=== PATIENT | male | born 1940 | race Caucasian/White ===

== ENCOUNTER 2017-10-11 11:53 | Inpatient (IN) ==
--- NOTE | 2017-10-11 12:07 | Emergency Department Note ---
Disposition Clinical Impression: Left-sided weakness TIA (transient ischemic attack) Qualifiers: Transient cerebral ischemia type: unspecified Qualified Code(s): G45.9 - Transient cerebral ischemic attack, unspecified Disposition: Admitted As Inpatient Condition: Good Time of Disposition: 13:15 Weakness HPI - General Chief complaint: ED Weakness Stated complaint: L sided weakness Time Seen by Provider: 10/11/17 11:59 Source: patient, EMS Limitations: no limitations Nursing Notes Reviewed: Yes Vital Signs Reviewed: Yes - History of Present Illness HPI Narrative: 77-year-old male otherwise healthy presents with left-sided weakness. 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 He also noticed his leg was significantly week and had to lift it to move it up. Squad was called as he was concerned. EMS reports on arrival patient symptoms have resolved and he was seen standing up and walking. Patient denies any history of stroke in the past. He denies any recent illness , headache, cough chest pain or shortness of breath. He has not fallen or taken any anticoagulants. [facility] and is not have any medical issues. Currently he reports resolution of his symptoms. NIH score of 0. Blood glucose 96. Will evaluate for TIA. Pt Subjective Complaint: focal weakness Pain Scale: 0 - Related Data Allergies Allergy/AdvReac Type Severity Reaction Status Date / Time Penicillins [PCN] Allergy Hives Verified 10/11/17 11:55 All systems ED: reviewed and negative except as stated. Review of Systems: As Per HPI Constitutional: Denies: fever, chills ENT ED: Denies: congestion, dysphagia Cardiovascular: Denies: chest pain, dyspnea on exertion Respiratory: Denies: cough, dyspnea Gastrointestinal: Denies: abdominal pain, nausea, vomiting Genitourinary: Denies: urgency, dysuria Musculoskeletal: Denies: back pain, neck pain Integumentary: Denies: rash, abrasion Neurological: Reports: weakness, numbness. Denies: headache, abnormal gait Psychiatric: Denies: anxiety, depression Past Medical History - Past Medical History Attestation: Yes The following information was validated with the patient. Source: patient Medical history: Reports: no medical history, GERD Psychiatric history: Reports: no psych history - Social History Smoking Status: Never smoker Smokeless Tobacco Status: No Alcohol use: Reports: none Drug use: Reports: none Physical Exam - General Limitations: no limitations General appearance: alert, in no apparent distress - Head Head exam: atraumatic, normocephalic, normal inspection - Eye Eye exam: Present: normal appearance, PERRL, EOMI - ENT ENT exam: normal exam, normal oropharynx, mucous membranes moist - Neck Neck exam: Present: normal inspection, full ROM, trachea midline - Chest Chest inspection: Present: normal inspection, symmetric chest wall rise - Respiratory Respiratory exam: Present: normal lung sounds bilaterally. Absent: respiratory distress, wheezes - Cardiovascular Cardiovascular exam: Present: regular rate, normal rhythm, normal heart sounds. Absent: systolic murmur, diastolic murmur - Abdominal Exam Abdominal exam: Present: soft, Non-Tender, normal bowel sounds. Absent: tenderness, distention, guarding, rebound, rigidity - Extremities Exam Extremities exam: Present: normal inspection, full ROM, normal capillary refill. Absent: tenderness, pedal edema, calf tenderness - Back Exam Back exam: Present: normal inspection, full ROM. Absent: tenderness, vertebral tenderness - Neurological Exam Neurological exam: Present: alert, oriented X3, CN II-XII intact - Expanded Neurological Exam Patient oriented to: Present: person, place, time Speech: Present: fluid speech Cranial nerves: EOM function (II, III, IV, ): Normal, facial sensation (V): Normal, facial palsy (VII): Normal, gag reflex (IX): Normal, spinal accessory function (XI): Normal, tongue deviation (XII): Normal Cerebellar function: finger to nose: Normal, heel to willson: Normal Motor strength - LUE: 5/5 Motor strength - RUE: 5/5 Motor strength - LLE: 5/5 Motor strength - RLE: 5/5 Upper motor neuron exam: rylan neglect: Absent bilaterally Sensory exam upper extremity: light touch: Normal Sensory exam lower extremity: light touch: Normal Coma Scale Eye Opening: Spontaneous Coma Scale Motor Response: Obeys Commands Coma Scale Verbal Response: Oriented Coma Scale Total: 15 - Psychiatric Psychiatric exam: Present: normal affect, normal mood - Skin Skin exam: Present: warm, dry, intact, normal color Course Course Narrative: 77-year-old male presents with left sided weakness. No prior history of CVA. Symptoms have resolved spontaneously. NIH 0. On exam no neurologic focal deficits. He has alert and oriented to person place and time. He denies any other complaints or symptoms. Glucose was 96. EKG is unremarkable. He will likely need admission for TIA workup. Will forgo the CT had at this time and get a MRI of the brain and admit the patient. Discuss with the hospital is for admission and they are also in agreement with this plan. No further orders at this time. - Consultations Consultation #1: Spoke with on-call hospitalist amos Cannon to admit for TIA and left weakness. No further orders at this time Vital Signs Temperature 98.2 F 10/11/17 11:56 Pulse Rate 95 10/11/17 11:56 Respiratory Rate 20 10/11/17 11:56 Blood Pressure 189/102 10/11/17 11:56 O2 Sat by Pulse Oximetry 95 10/11/17 11:56 Temperature 98.2 F 10/11/17 11:56 Pulse Rate 86 10/11/17 13:15 Respiratory Rate 18 10/11/17 13:15 Blood Pressure 154/104 10/11/17 13:15 O2 Sat by Pulse Oximetry 99 10/11/17 13:15 Oxygen Delivery Oxygen Delivery Room Air Weakness - MDM Narrative Medical decision making narrative: Patient was discussed with my attending physician who agrees with ED management and final disposition. They independently evaluated the patient. Please refer to their attestation to this encounter for additional information. This note was generated by [employer] voice recognition software and as a result grammatical or spelling errors may occur using this program. - Medical Records Medical records reviewed: Yes I reviewed the patient's medical records. - Lab Data Lab results reviewed: Yes I reviewed the patient's lab results. Result diagrams: 10/11/17 12:22 10/11/17 12:22 Lab Results 10/11/17 10/11/17 10/11/17 Range/Units 11:58 12:22 12:22 WBC 7.1 (4.3-11.1) K/mcL RBC 4.31 (4.19-5.50) M/mcL Hgb 13.3 (12.9-16.9) g/dL Hct 39.9 (37.5-50.1) % MCV 92.6 (83.0-100.0) fL MCH 30.9 (28.0-33.3) pg MCHC 33.3 (31.6-35.5) g/dL RDW 12.3 (11.5-14.5) % Plt Count 230 (140-400) K/mcL MPV 9.7 (9.4-12.4) fL Immature Gran % 0.7 (0-4) % Seg Neutrophils % 67.0 % Lymphocytes % 17.0 % Monocytes % 12.2 % Eosinophils % 2.4 % Basophils % 0.7 % Neutrophils # 4.7 (1.6-8.9) K/mcL Lymphocytes # 1.2 (0.6-4.6) K/mcL Monocytes # 0.9 (0.0-1.3) K/mcL Eosinophils # 0.2 (0.0-0.6) K/mcL Basophils # 0.1 (0.0-0.2) K/mcL PT 11.9 (9.4-12.1) Seconds INR 1.1 APTT 32.3 (26.0-36.0) Seconds Sodium (136-145) mEq/L Potassium (3.5-4.5) mEq/L Chloride (98-109) mEq/L Carbon Dioxide (19-29) mEq/L BUN (8-26) mg/dL Creatinine (0.72-1.25) mg/dL Est GFR ( Amer) (> 60) Est GFR (Non-Af Amer) (> 60) BUN/Creatinine Ratio (6-26) Glucose (70-99) mg/dL POC Glucose 98 H (58-89) Calculated Osmolality (280-300) Calcium (8.6-10.8) mg/dL Troponin I (0-0.03) ng/mL 10/11/17 10/11/17 Range/Units 12:22 12:22 WBC (4.3-11.1) K/mcL RBC (4.19-5.50) M/mcL Hgb (12.9-16.9) g/dL Hct (37.5-50.1) % MCV (83.0-100.0) fL MCH (28.0-33.3) pg MCHC (31.6-35.5) g/dL RDW (11.5-14.5) % Plt Count (140-400) K/mcL MPV (9.4-12.4) fL Immature Gran % (0-4) % Seg Neutrophils % % Lymphocytes % % Monocytes % % Eosinophils % % Basophils % % Neutrophils # (1.6-8.9) K/mcL Lymphocytes # (0.6-4.6) K/mcL Monocytes # (0.0-1.3) K/mcL Eosinophils # (0.0-0.6) K/mcL Basophils # (0.0-0.2) K/mcL PT (9.4-12.1) Seconds INR APTT (26.0-36.0) Seconds Sodium 142 (136-145) mEq/L Potassium 4.2 (3.5-4.5) mEq/L Chloride 106 (98-109) mEq/L Carbon Dioxide 27 (19-29) mEq/L BUN 20 (8-26) mg/dL Creatinine 1.53 H (0.72-1.25) mg/dL Est GFR ( Amer) 54 L (> 60) Est GFR (Non-Af Amer) 44 L (> 60) BUN/Creatinine Ratio 13 (6-26) Glucose 103 H (70-99) mg/dL POC Glucose (58-89) Calculated Osmolality 297 (280-300) Calcium 9.1 (8.6-10.8) mg/dL Troponin I 0.01 (0-0.03) ng/mL - EKG Data EKG attestation: Yes I reviewed and interpreted this EKG. EKG results narrative: EKG performed 1323 normal sinus rhythm 61 piece per minute, normal axis, no ST elevations or depressions, T wave inversion seen and V1 and V3, voltage criteria for left ventricular hypertrophy. Intervals are within normal limits. There is no old EKG available for comparison. No acute ischemic changes seen on EKG at this time. Attestation Statement - Attestation Attestation: I examined this patient and my medical decision-making was reviewed with the Resident Physician. I agree with the documented findings, disposition and treatment plan as described except to the extent set forth below. Left sided weakness resolved prior to arrival, now at neurologic baseline. MRI ordered, case discussed with Dr. Norris who agrees with work up and plan and will admit the patient.
[2017-10-11 12:38] LABS: Basophils # 0.1 K/mcL (0.0-0.2); Basophils % 0.7 %; Eosinophils # 0.2 K/mcL (0.0-0.6); Eosinophils % 2.4 %; Hematocrit 39.9 % (37.5-50.1); Hemoglobin 13.3 g/dL (12.9-16.9); Immature Granulocytes % 0.7 % (0-4); Lymphocytes # 1.2 K/mcL (0.6-4.6); Mean Corpuscular HGB Conc 33.3 g/dL (31.6-35.5); Mean Corpuscular Hemoglobin 30.9 pg (28.0-33.3); Mean Corpuscular Volume 92.6 fL (83.0-100.0); Mean Platelet Volume 9.7 fL (9.4-12.4); Monocytes # 0.9 K/mcL (0.0-1.3); Monocytes % 12.2 %; Neutrophils # 4.7 K/mcL (1.6-8.9); Platelet Count 230 K/mcL (140-400); Red Blood Count 4.31 M/mcL (4.19-5.50); Red Cell Distribution Width 12.3 % (11.5-14.5)
[2017-10-11 12:48] LABS: INR 1.1; Prothrombin Time 11.9 Seconds (9.4-12.1)
[2017-10-11 12:49] LABS: Potassium 4.2 mEq/L (3.5-4.5)
[2017-10-11 12:50] LABS: Calcium 9.1 mg/dL (8.6-10.8)
[2017-10-11 12:51] LABS: Activated Partial Thrombo Time 32.3 Seconds (26.0-36.0)
[2017-10-11] MEDS ORDERED: *HR* Morphine 2 MG/ML SYRINGE IVP PRN (13:13)
[2017-10-11] MEDS ORDERED: Naloxone 0.4 MG/ML INJ IVP PRN (13:13)
--- NOTE | 2017-10-11 13:13 | Internal Med History&Physical ---
Date of Encounter: 10/13/17 Time of Encounter: 13:12 Assessment and Plan (1) TIA (transient ischemic attack) Current visit: Yes Status: Acute 77/male Admitted with possibility of a TIA to rule out CVA. Plan: Admitted to inpatient. 2 hourly neuro checks. Nothing by mouth. Aspirin/Lipitor. Awaiting for MRI brain. Ultrasound carotid 2-D echocardiogram. Physical therapy/occupational therapy/speech therapy evaluation. Close monitoring of the patient's symptoms. Note: I have examined this patient in the room #21 of the emergency department. I have discussed the plan with the patient. Patient agreed and verbalized understanding. Qualifiers: Transient cerebral ischemia type: unspecified Qualified Code(s): G45.9 - Transient cerebral ischemic attack, unspecified (2) Hypertension Current visit: Yes Status: Acute This is permissive hypertension in view of possibility of a TIA or/evolving CVA. Qualifiers: Hypertension type: essential hypertension Qualified Code(s): I10 - Essential (primary) hypertension (3) DVT prophylaxis Current visit: Yes Status: Acute SCD Medical decision-making: This patient has a moderate to severe risk of worsening in spite of being on appropriate medication due to the underlying nature of the disease. Internal Medicine - H&P: HPI Chief complaint: left sided weakness Admitted From: Emergency Dept Plans for Post Hospital Care: Home History of present illness: PCP: HUGO Hastings. 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 Patient was unable to do the same and that was concerning to him. Patient realizes that he is not able to raise his left arm as well as left leg and for which initially he thought there is some kind of heaviness/numbness in his extremity. He tried to move it up and down but it was not able to have any movement in terms of what he was experiencing the regular movements previously. This episode was very concerned that the patient and that was reason he cannot squad for further evaluation. Patient denies chest pain, shortness of breath palpitation, nausea, vomiting, diarrhea or dizziness. Workup in the emergency room: Basic labs were drawn. Blood glucose was 96. NIH score was 0. When patient came to emergency room of his symptoms were resolved. Reason for admission: TIA to rule out CVA Family history: Nonsignificant Past Med Surg Social Fam HX - Past Medical History Medical history: no medical history, GERD Psychiatric history: no psych history - Social History Smoking Status: Never smoker Smokeless Tobacco Status: No Alcohol use: none Drug use: none Internal Medicine - H&P: Meds Acetaminophen [Pain Reliever] 1,000 mg PO BID 10/11/17 [History] Calcium Carbonate/Vitamin D3 [Calcium 500 + Vit D Caplet] 1 tab PO DAILY [History] Carboxymethylcellulose Sodium [Refresh Liquigel] 1 drop OP TID 10/11/17 [History ] Cetirizine HCl [All Day Allergy] 10 mg PO DAILY 10/11/17 [History] Cholecalciferol (D-3) [Vitamin D] 1,000 unit PO DAILY 10/11/17 [History] FluocinoNIDE 0.05% CRM [Lidex] 1 appl TP BID 10/11/17 [History] Hydrocortisone 2.5% CREAM [Cortaid] 1 appl TP BID 10/11/17 [History] Omeprazole [PriLOSEC] 20 mg PO DAILY 10/11/17 [History] Simethicone [Gas-X] 80 mg PO QID PRN 10/11/17 [History] hydrOXYzine pamoate [HydrOXYzine Pamoate] 25 mg PO BID PRN 10/11/17 [History] 3 Allergy/AdvReac Type Severity Reaction Status Date / Time Penicillins [PCN] Allergy Hives Verified 10/11/17 11:55 All Systems PM: A 10-system review of systems was performed and is negative for pertinent findings except as documented above in the HPI. - Constitutional Constitutional: no chills, no fever(s), no night sweats - EENT Eyes: no change in vision, no discharge, no pain, no photophobia Ears: no ear discharge, no ear pain, no tinnitus Nose, mouth and throat: no dysphagia, no nasal discharge, no neck pain, no sore throat - Cardiovascular Cardiovascular ROS IM: no chest pain, no diaphoresis, no dyspnea, no lightheadedness, no palpitations, no syncope - Respiratory Respiratory: no cough, no dyspnea, no wheezing, no excessive phlegm production - Gastrointestinal Gastrointestinal: no abdominal pain, no diarrhea, no hematemesis, no hematochezia, no melena, no nausea, no vomiting - Musculoskeletal Musculoskeletal ROS IM: no numbness, no tingling - Integumentary Integumentary IM: no rash, no unusual bruising - Neurological Neurological ROS: focal weakness, numbness, paresthesias, tingling, no confusion , no convulsions, no tremor(s) - Hematologic/Lymphatic Hematologic/Lymphatic: no easy bruising - Constitutional Vitals: Temp Pulse Resp BP Pulse Ox 98.2 F 95 20 189/102 95 10/11/17 11:56 10/11/17 11:56 10/11/17 11:56 10/11/17 11:56 10/11/17 11:56 General appearance: Present: A&O X 3, pleasant, no acute distress, answers questions appropriately - Head Head exam: Present: atraumatic, normocephalic - Eye Eye exam: Present: PERRL, conjuntiva pink, sclera anicteric Pupils: Present: PERRL - Neck Neck exam general surgery: Present: supple, trachea midline. Absent: lymphadenopathy - Respiratory Respiratory exam: Present: CTAB. Absent: accessory muscle use, rales, rhonchi, wheezes - Cardiovascular Cardiovascular exam: Present: RRR, +S1, +S2. Absent: diastolic murmur, gallop, rubs, systolic murmur - GI/Abdominal GI/Abdominal exam: Present: normal bowel sounds, soft, no peritoneal signs. Absent: distended, tenderness - Extremities Exam Extremities exam: Present: warm, radial pulses palpable and symmetrical. Absent : calf tenderness, cyanotic, pedal edema - Neurological Exam Neurological exam: Present: CN II-XII intact, oriented X3, no focal deficits. Absent: pronater drift, facial droop, speech deficit - Skin Skin exam: Present: dry, intact Internal Med - H&P Results - Labs CBC & Chem 7: 10/12/17 04:04 10/12/17 04:04 Labs: Short CBC 10/11/17 Range/Units 12:22 WBC 7.1 (4.3-11.1) K/mcL Hgb 13.3 (12.9-16.9) g/dL Hct 39.9 (37.5-50.1) % Plt Count 230 (140-400) K/mcL Neutrophils # 4.7 (1.6-8.9) K/mcL BMP 10/11/17 12:22 Sodium 142 Potassium 4.2 Chloride 106 Carbon Dioxide 27 BUN 20 Creatinine 1.53 H Glucose 103 H Calcium 9.1 Cardiac Enzymes 10/11/17 Range/Units 12:22 Troponin I 0.01 (0-0.03) ng/mL
[2017-10-11] MEDS ORDERED: Aspirin 81 MG TAB.CHEW PO STA (14:12)
[2017-10-12 04:32] LABS: INR 1.1; Prothrombin Time 11.6 Seconds (9.4-12.1)
[2017-10-12 04:33] LABS: Basophils % 0.6 %; Eosinophils # 0.2 K/mcL (0.0-0.6); Eosinophils % 2.8 %; Hematocrit 38.1 % (37.5-50.1); Immature Granulocytes % 0.4 % (0-4); Lymphocytes # 1.7 K/mcL (0.6-4.6); Lymphocytes % 24.6 %; Mean Corpuscular HGB Conc 34.1 g/dL (31.6-35.5); Mean Corpuscular Hemoglobin 31.3 pg (28.0-33.3); Mean Corpuscular Volume 91.8 fL (83.0-100.0); Mean Platelet Volume 9.9 fL (9.4-12.4); Monocytes # 0.8 K/mcL (0.0-1.3); Monocytes % 11.4 %; Neutrophils # 4.1 K/mcL (1.6-8.9); Platelet Count 217 K/mcL (140-400); Red Blood Count 4.15 M/mcL (4.19-5.50); Red Cell Distribution Width 12.4 % (11.5-14.5); Segmented Neutrophils % 60.2 %
[2017-10-12 04:35] LABS: Activated Partial Thrombo Time 31.3 Seconds (26.0-36.0)
[2017-10-12 04:43] LABS: Albumin 3.3 g/dL (3.5-5.0); Albumin/Globulin Ratio 1.1 (1.1-2.2); Bilirubin,Total 0.4 mg/dL (0.2-1.2); Calcium 9.2 mg/dL (8.6-10.8); Chol/HDL Ratio 5.4 (0-4.9); Globulin 3.1 g/dL (2.4-3.5); Magnesium 2.2 mg/dL (1.6-2.6); Phosphorous 2.9 mg/dL (2.3-4.7); Potassium 3.9 mEq/L (3.5-4.5); Total Protein 6.4 g/dL (6.0-8.3)
[2017-10-12] MEDS: Aspirin Enteric Coated 81 MG Tablet PO SCH (08:45)
--- NOTE | 2017-10-12 13:08 | Internal Med Progress Note ---
Date of Encounter: 10/13/17 Time of Encounter: 12:57 - Assessment and plan (1) TIA (transient ischemic attack) Current Visit: Yes Status: Acute Assessment and plan: 77/ male Admitted with TIA symptoms. Presently on aspirin/Lipitor 40mg Total cholesterol:167, LDL:113 MRI scan: Right MCA infarct. Right coronary the/posterior limb of the internal capsule involved. Echocardiogram: Ejection fraction 55-60%, no regional wall motion abnormality, no PFO. Ultrasound carotid: No stenotic plaque noted. Physical therapy evaluation: Recommended inpatient rehabilitation Noted that patient's creatinine was 1.53 on 10/11/2017. Patient's creatinine today is 1.63. Plan: We will monitor creatinine very closely. 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 Possible inpatient rehabilitation placement in next 1-2 days as per older adult social work specialist. Qualifiers: Transient cerebral ischemia type: unspecified Qualified Code(s): G45.9 - Transient cerebral ischemic attack, unspecified (2) Hypertension Current Visit: Yes Status: Acute Assessment and plan: His blood pressure is within well accepted range. Qualifiers: Hypertension type: essential hypertension Qualified Code(s): I10 - Essential (primary) hypertension (3) DVT prophylaxis Current Visit: Yes Status: Acute Assessment and plan: SCD Medical decision making: This patient is a moderate to severe risk of worsening in spite of being on appropriate medication due to the underlying complex medical condition. - Subjective Interval history: Patient seen and examined. Chart reviewed. Patient is comfortably lying in the bed. Patient has concerns regarding his cat. Apparently there is nobody at home to feed the cat. Patient is trying his level best to get a family member so that they can feed her cat - Constitutional Vitals: Temp Pulse Resp BP Pulse Ox 97.8 F 86 20 163/82 94 10/12/17 11:53 10/12/17 11:53 10/12/17 11:53 10/12/17 11:53 10/12/17 11:53 General appearance: Present: A&O X 3, pleasant, no acute distress, answers questions appropriately - Head Head exam: Present: atraumatic, normocephalic - Eye Eye exam: Present: PERRL, conjuntiva pink, sclera anicteric Pupils: Present: PERRL - Neck Neck exam general surgery: Present: supple, trachea midline. Absent: lymphadenopathy - Respiratory Respiratory exam: Present: CTAB. Absent: accessory muscle use, rales, rhonchi, wheezes - Cardiovascular Cardiovascular exam: Present: RRR, +S1, +S2. Absent: diastolic murmur, gallop, rubs, systolic murmur - GI/Abdominal GI/Abdominal exam: Present: normal bowel sounds, soft, no peritoneal signs. Absent: distended, tenderness - Extremities Exam Extremities exam: Present: warm, radial pulses palpable and symmetrical. Absent : calf tenderness, cyanotic, pedal edema - Neurological Exam Neurological exam: Present: CN II-XII intact, oriented X3, no focal deficits. Absent: pronater drift, facial droop, speech deficit - Skin Skin exam: Present: dry, intact Internal Medicine: Result - Labs CBC & Chem 7: 10/12/17 04:04 10/12/17 04:04 Labs: Short CBC 10/12/17 Range/Units 04:04 WBC 6.8 (4.3-11.1) K/mcL Hgb 13.0 (12.9-16.9) g/dL Hct 38.1 (37.5-50.1) % Plt Count 217 (140-400) K/mcL Neutrophils # 4.1 (1.6-8.9) K/mcL BMP 10/12/17 04:04 Sodium 142 Potassium 3.9 Chloride 107 Carbon Dioxide 28 BUN 19 Creatinine 1.63 H Glucose 113 H Calcium 9.2 Cardiac Enzymes 10/11/17 10/12/17 10/12/17 Range/Units 17:56 00:43 04:04 Troponin I 0.01 0.01 0.02 (0-0.03) ng/mL Liver Function 10/12/17 Range/Units 04:04 Total Bilirubin 0.4 (0.2-1.2) mg/dL AST 21 (5-34) Units/L ALT 21 (0-55) Units/L Alkaline Phosphatase 85 (38-126) Units/L Albumin 3.3 L (3.5-5.0) g/dL - ABG Interpretation ABG results: PT/INR, D-dimer PT 11.6 Seconds (9.4-12.1) 10/12/17 04:04 - Impressions Impressions Echocardiogram 10/11/17 13:19 Impressions: LVEF 55-60%. Not all LV segments were well visualized, but overall function is normal. Mild concentric left ventricular hypertrophy. Mild left ventricular diastolic dysfunction. Normal right ventricular structure and function. No evidence of PFO with agitated saline contrast. Unable to estimate RVSP due to lack of TR jet. No obvious significant valvular dysfunction. Findings: Study Quality * Technically sub-optimal due to poor echocardiographic windows. ECG Findings * Sinus rhythm with BBB. Left Ventricle * LVEF 55-60%. Not all LV segments were well visualized, but overall function is normal. * Normal LV chamber size. * Mild concentric left ventricular hypertrophy. * Mild left ventricular diastolic dysfunction. Right Ventricle * Normal right ventricular structure and function. Left Atrium * Normal left atrial size. Interatrial Septum * No evidence of PFO with agitated saline contrast. Aortic Valve * Aortic valve not well visualized. * Moderately sclerotic noncoronary cusp. * No aortic stenosis. * Trace aortic regurgitation. Mitral Valve * Mitral valve not well visualized. * No mitral regurgitation. * No mitral stenosis. Tricuspid Valve * Tricuspid valve not well visualized. * No tricuspid regurgitation. * Unable to estimate RVSP due to lack of TR jet. Pulmonic Valve * Pulmonic valve not well visualized. Aorta * Normally sized aortic root. Pericardium * The pericardium appears normal. IVC * The IVC is not well evaluated. Pulmonary Artery * Pulmonary artery not well visualized. Right Atrium * Normal right atrial size. Consult Discharge Plan - Plan [facility]errals: [facility]Primary Care Provider[facility] -
--- NOTE | 2017-10-12 16:57 | Electrocardiograph Report ---
[place] [id number] Test Date: 2017-10-11 Pat Name: Carl Farah Department: 103 Room: 3B Gender: M Wet Process Miller: ELSA : 1940 Requested By: Bob Lawton Order Number: [id number] Reading MD: Bull Burden DO Measurements Intervals [place] Rate: 92 P: 63 [place]: 232 QRS: -4 QRSD: 150 T: 164 QT: 386 QTc: 436 Interpretive Statements Sinus rhythm with a first degree AV block Left bundle branch block Electronically Signed On 10-12-2017 16:55:59 EST by Bull Burden DO
--- NOTE | 2017-10-12 16:58 | Neurology - Consult Note ---
Date of Encounter: 10/12/17 Time of Encounter: 16:56 Assessment and Plan (1) CVA (cerebral vascular accident) Current Visit: Yes Status: Acute Patient with HTN and obesity who developed lacunar infarct at the right adame radiata causing left sided paresis, likely small vessel etiology secondary to history of HTN. Stroke work up is completed including echocardiography, and carotid artery doppler study which showed no significant ICA stenosis, and no cardiac source of emboli. This mostly likely small vessel lacunar infarct. Agree with antiplatelet therapy in the form of Aspirin 81mg daily. Continue statin therapy. He may benefit for PT. Agree with current treatment plan. Patient can be discharged to [place] from neurology perspective. Qualifiers: CVA mechanism: unspecified Qualified Code(s): I63.9 - Cerebral infarction, unspecified History of Present Illness Chief complaint: left sided weakness HPI: Mr. Farah is a 77 year old male with PMH significant for HTN, obesity who presented to ER with acute onset of left sided weakness. 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 He was brought to the hospital and initial CT of head was reported no acute intracranial abnormality. Symptoms occurred yesterday. He recently was found to have elevated BP. He is a and used to get medical care at [facility]. He has not had any significant medical problems, except that he has some neck pain from having spurs and that he has to use a cane to walk due to back pain to the left leg. At the time of this interview, MRI of brain was completed and showed presence of acute cerebral infarct. at the right adame radiata. He feels that the left sided weakness already getting better is able walk using a cane Echocardiography: EV/EV echocardiogram Impressions: LVEF 55-60%. Not all LV segments were well visualized, but overall function is normal. Mild concentric left ventricular hypertrophy. Mild left ventricular diastolic dysfunction. Normal right ventricular structure and function. No evidence of PFO with agitated saline contrast. Unable to estimate RVSP due to lack of TR jet. No obvious significant valvular dysfunction. Carotid artery duplex essentially normal. He takes aspirin on and off for headaches. Past Med Surg Social Fam HX - Past Medical History Medical history: no medical history, GERD Psychiatric history: no psych history - Social History Smoking Status: Former smoker Smokeless Tobacco Status: No Alcohol use: none Drug use: none - Family History Mother Living Status: Age at : 84 Cause of : Breast Cancer Father Living Status: Age at : 84 Cause of : Liver Cancer Sister Living Status: Age at : 55 Cause of : Mets Medications and Allergies Acetaminophen [Pain Reliever] 1,000 mg PO BID 10/11/17 [History] Calcium Carbonate/Vitamin D3 [Calcium 500 + Vit D Caplet] 1 tab PO DAILY [History] Carboxymethylcellulose Sodium [Refresh Liquigel] 1 drop OP TID 10/11/17 [History ] Cetirizine HCl [All Day Allergy] 10 mg PO DAILY 10/11/17 [History] Cholecalciferol (D-3) [Vitamin D] 1,000 unit PO DAILY 10/11/17 [History] FluocinoNIDE 0.05% CRM [Lidex] 1 appl TP BID 10/11/17 [History] Hydrocortisone 2.5% CREAM [Cortaid] 1 appl TP BID 10/11/17 [History] Omeprazole [PriLOSEC] 20 mg PO DAILY 10/11/17 [History] Simethicone [Gas-X] 80 mg PO QID PRN 10/11/17 [History] hydrOXYzine pamoate [HydrOXYzine Pamoate] 25 mg PO BID PRN 10/11/17 [History] 3 Allergy/AdvReac Type Severity Reaction Status Date / Time Penicillins [PCN] Allergy Hives Verified 10/11/17 11:55 All Systems: A 10-system review of systems was performed and is negative for pertinent findings except as documented above in the HPI. Physical Examination - Vital Signs Vital Signs: Initial Vital Signs Temp Pulse Resp BP Pulse Ox 98.2 F 95 20 189/102 95 10/11/17 11:56 10/11/17 11:56 10/11/17 11:56 10/11/17 11:56 10/11/17 11:56 - Constitutional General appearance: comfortable - Neurologic Sensorimotor examination: intact Detailed motor examination: other (Mild weakness to the left side noted. ) Motor examination - right side: 5/5: deltoids, biceps, triceps, wrist flexion, wrist extension, audio visual engineer, hip flexors, tibialis Anterior, quadriceps, toe extension (EHL), plantarflexion Motor examination - left side: 4/5: deltoids, biceps, triceps, wrist flexion, wrist extension, hip flexors, audio visual engineer, quadriceps, tibialis Anterior, toe extension (EHL), plantarflexion Detailed sensory examination: intact Posture: other (None) Reflexes: Biceps: 1+, Triceps: 1+, Brachioradialis: 1+, Patella: 1+, Achilles: 1 + Mental Status Examination: awake, alert, oriented to person, oriented to place, oriented to time, follows commands appropriately, answers questions appropriately, no agnosia, no aphasia, no aproxia Cranial nerve examination: PERRL, EOMI, visual costello intact, corneal reflexes brisk symmetrically, sensory to face intact, mastication intact, no facial asymmetry is present, no dysarthria, hearing is intact symmetrically, soft palate elevates bilaterally upon phonation, gag reflex intact, flexes SCM and trapezius muscles symmetrically with full power, tongue protrudes midline, no atrophy or facial fasiculations present Results - Laboratory Findings CBC and BMP: 10/12/17 04:04 10/12/17 04:04 Abnormal lab findings: Abnormal lab results RBC 4.15 M/mcL (4.19-5.50) L 10/12/17 04:04 Creatinine 1.63 mg/dL (0.72-1.25) H 10/12/17 04:04 Est GFR ( Amer) 50 (> 60) L 10/12/17 04:04 Est GFR (Non-Af Amer) 41 (> 60) L 10/12/17 04:04 Glucose 113 mg/dL (70-99) H 10/12/17 04:04 POC Glucose 118 (58-89) H 10/11/17 20:47 Albumin 3.3 g/dL (3.5-5.0) L 10/12/17 04:04 LDL Cholesterol, Calc 113 mg/dL (0-99) H 10/12/17 04:04 HDL Cholesterol 31 mg/dL (40-59) L 10/12/17 04:04 Cholesterol/HDL Ratio 5.4 (0-4.9) H 10/12/17 04:04 Consult Discharge Plan - Plan [facility]: [facility] [Primary Care Provider] -
[2017-10-13] MEDS: Aspirin Enteric Coated 81 MG Tablet PO SCH (08:24)
--- NOTE | 2017-10-13 15:21 | Internal Med Progress Note ---
Date of Encounter: 10/13/17 Time of Encounter: 15:19 - Assessment and plan (1) TIA (transient ischemic attack) Current Visit: Yes Status: Acute Assessment and plan: 77/ male Admitted with TIA symptoms. Presently on aspirin/Lipitor 40mg Total cholesterol:167, LDL:113 MRI scan: Right MCA infarct. Right coronary the/posterior limb of the internal capsule involved. Echocardiogram: Ejection fraction 55-60%, no regional wall motion abnormality, no PFO. Ultrasound carotid: No stenotic plaque noted. Physical therapy evaluation: Recommended inpatient rehabilitation Noted that patient's creatinine was 1.53 on 10/11/2017. Patient's creatinine today is 1.63. Plan: We will monitor creatinine very closely. die try out worker to evaluate for inpatient rehabilitation. Possible inpatient rehabilitation placement in next 1-2 days as per protective services social worker. 10/13/2017 Patient seen by neurology. We will follow the recommendation from neurology. According to physical therapy patient should be placed in a inpatient rehabilitation. Patient has a [place]. [facility] and will try to expedite his process of getting inpatient rehabilitation. Qualifiers: Transient cerebral ischemia type: unspecified Qualified Code(s): G45.9 - Transient cerebral ischemic attack, unspecified (2) Hypertension Current Visit: Yes Status: Acute Assessment and plan: His blood pressure is within well accepted range. Qualifiers: Hypertension type: essential hypertension Qualified Code(s): I10 - Essential (primary) hypertension (3) DVT prophylaxis Current Visit: Yes Status: Acute Assessment and plan: SCD Medical decision making: This patient is a moderate to severe risk of worsening in spite of being on appropriate medication due to the underlying complex medical condition. - Subjective Interval history: Patient seen and examined. Chart reviewed. Patient is comfortably lying in the bed. Patient has concerns regarding his cat. Apparently there is nobody at home to feed the cat. Patient is trying his level best to get a family member so that they can feed her cat 10/13/2017 Patient seen and examined. chart reviewed. patient is comfortably lying in the bed. Patient denies chest pain, shortness of breath, nausea, vomiting, abdominal pain - Constitutional Vitals: Temp Pulse Resp BP Pulse Ox 97.9 F 88 18 167/90 94 10/13/17 14:58 10/13/17 14:58 10/13/17 14:58 10/13/17 14:58 10/13/17 14:58 General appearance: Present: A&O X 3, pleasant, no acute distress, answers questions appropriately - Head Head exam: Present: atraumatic, normocephalic - Eye Eye exam: Present: PERRL, conjuntiva pink, sclera anicteric Pupils: Present: PERRL - Neck Neck exam general surgery: Present: supple, trachea midline. Absent: lymphadenopathy - Respiratory Respiratory exam: Present: CTAB. Absent: accessory muscle use, rales, rhonchi, wheezes - Cardiovascular Cardiovascular exam: Present: RRR, +S1, +S2. Absent: diastolic murmur, gallop, rubs, systolic murmur - GI/Abdominal GI/Abdominal exam: Present: normal bowel sounds, soft, no peritoneal signs. Absent: distended, tenderness - Extremities Exam Extremities exam: Present: warm, radial pulses palpable and symmetrical. Absent : calf tenderness, cyanotic, pedal edema - Neurological Exam Neurological exam: Present: CN II-XII intact, oriented X3, no focal deficits. Absent: pronater drift, facial droop, speech deficit - Skin Skin exam: Present: dry, intact Internal Medicine: Result - Labs CBC & Chem 7: 10/12/17 04:04 10/12/17 04:04 - ABG Interpretation ABG results: PT/INR, D-dimer PT 11.6 Seconds (9.4-12.1) 10/12/17 04:04 - VTE Documentation of Mechanical Device: Graduated compression elastic hosiery Consult Discharge Plan - Plan [facility]errals: [facility] [Primary Care Provider] -
[2017-10-14 06:17] LABS: Basophils # 0.1 K/mcL (0.0-0.2); Basophils % 0.6 %; Eosinophils # 0.2 K/mcL (0.0-0.6); Eosinophils % 2.4 %; Hematocrit 40.1 % (37.5-50.1); Hemoglobin 13.8 g/dL (12.9-16.9); Immature Granulocytes % 0.7 % (0-4); Lymphocytes % 22.8 %; Mean Corpuscular HGB Conc 34.4 g/dL (31.6-35.5); Mean Corpuscular Hemoglobin 31.4 pg (28.0-33.3); Mean Corpuscular Volume 91.1 fL (83.0-100.0); Mean Platelet Volume 9.6 fL (9.4-12.4); Monocytes # 0.7 K/mcL (0.0-1.3); Monocytes % 8.5 %; Neutrophils # 5.6 K/mcL (1.6-8.9); Platelet Count 222 K/mcL (140-400); Red Cell Distribution Width 12.4 % (11.5-14.5)
[2017-10-14 06:30] LABS: Potassium 4.1 mEq/L (3.5-4.5)
[2017-10-14 06:31] LABS: Albumin 3.5 g/dL (3.5-5.0); Albumin/Globulin Ratio 1.1 (1.1-2.2); Bilirubin,Total 0.6 mg/dL (0.2-1.2); Globulin 3.3 g/dL (2.4-3.5); Total Protein 6.8 g/dL (6.0-8.3)
[2017-10-14] MEDS: Aspirin Enteric Coated 81 MG Tablet PO SCH (07:46)
--- NOTE | 2017-10-14 15:41 | Internal Med Progress Note ---
Date of Encounter: 10/14/17 Time of Encounter: 15:35 - Assessment and plan (1) TIA (transient ischemic attack) Current Visit: Yes Status: Acute Assessment and plan: 77/ male Admitted with TIA symptoms. Presently on aspirin/Lipitor 40mg Total cholesterol:167, LDL:113 MRI scan: Right MCA infarct. Right coronary the/posterior limb of the internal capsule involved. Echocardiogram: Ejection fraction 55-60%, no regional wall motion abnormality, no PFO. Ultrasound carotid: No stenotic plaque noted. Physical therapy evaluation: Recommended inpatient rehabilitation Noted that patient's creatinine was 1.53 on 10/11/2017. Patient's creatinine today is 1.63. Plan: We will monitor creatinine very closely. making line worker to evaluate for inpatient rehabilitation. Possible inpatient rehabilitation placement in next 1-2 days as per socially responsible investment adviser. 10/14/2017 Creatinine stable. Awaiting for transfer to inpatient rehabilitation at [facility] [place]. Qualifiers: Transient cerebral ischemia type: unspecified Qualified Code(s): G45.9 - Transient cerebral ischemic attack, unspecified (2) Hypertension Current Visit: Yes Status: Acute Assessment and plan: His blood pressure is within well accepted range. Qualifiers: Hypertension type: essential hypertension Qualified Code(s): I10 - Essential (primary) hypertension (3) DVT prophylaxis Current Visit: Yes Status: Acute Assessment and plan: SCD Medical decision making: This patient is a moderate to severe risk of worsening in spite of being on appropriate medication due to the underlying complex medical condition. - Subjective Interval history: Patient seen and examined. Chart reviewed. Patient is comfortably lying in the bed. Patient has concerns regarding his cat. Apparently there is nobody at home to feed the cat. Patient is trying his level best to get a family member so that they can feed her cat 10/14/2017 Patient seen and examined. Chart reviewed. Patient is walking around the room. Patient is awaiting for a bed at inpatient [facility] facility for rehabilitation. - Constitutional Vitals: Temp Pulse Resp BP Pulse Ox 97.9 F 96 18 160/91 92 10/14/17 15:25 10/14/17 15:25 10/14/17 15:25 10/14/17 15:25 10/14/17 15:25 General appearance: Present: A&O X 3, pleasant, no acute distress, answers questions appropriately Internal Medicine: Result - Labs CBC & Chem 7: 10/14/17 05:59 10/14/17 05:59 Labs: Short CBC 10/14/17 Range/Units 05:59 WBC 8.7 (4.3-11.1) K/mcL Hgb 13.8 (12.9-16.9) g/dL Hct 40.1 (37.5-50.1) % Plt Count 222 (140-400) K/mcL Neutrophils # 5.6 (1.6-8.9) K/mcL BMP 10/14/17 05:59 Sodium 142 Potassium 4.1 Chloride 108 Carbon Dioxide 26 BUN 28 H Creatinine 1.80 H Glucose 115 H Calcium 9.0 Liver Function 10/14/17 Range/Units 05:59 Total Bilirubin 0.6 (0.2-1.2) mg/dL AST 28 (5-34) Units/L ALT 23 (0-55) Units/L Alkaline Phosphatase 85 (38-126) Units/L Albumin 3.5 (3.5-5.0) g/dL - ABG Interpretation ABG results: PT/INR, D-dimer PT 11.6 Seconds (9.4-12.1) 10/12/17 04:04 - VTE Documentation of Mechanical Device: Graduated compression elastic hosiery Consult Discharge Plan - Plan [facility]errals: [facility] [Primary Care Provider] -
[2017-10-15 04:45] LABS: Basophils % 0.5 %; Eosinophils # 0.2 K/mcL (0.0-0.6); Eosinophils % 2.6 %; Hematocrit 40.2 % (37.5-50.1); Hemoglobin 13.7 g/dL (12.9-16.9); Immature Granulocytes % 0.6 % (0-4); Lymphocytes # 1.8 K/mcL (0.6-4.6); Lymphocytes % 21.6 %; Mean Corpuscular HGB Conc 34.1 g/dL (31.6-35.5); Mean Corpuscular Hemoglobin 31.2 pg (28.0-33.3); Mean Corpuscular Volume 91.6 fL (83.0-100.0); Mean Platelet Volume 9.5 fL (9.4-12.4); Monocytes # 0.9 K/mcL (0.0-1.3); Monocytes % 10.8 %; Neutrophils # 5.4 K/mcL (1.6-8.9); Platelet Count 229 K/mcL (140-400); Red Blood Count 4.39 M/mcL (4.19-5.50); Red Cell Distribution Width 12.4 % (11.5-14.5); Segmented Neutrophils % 63.9 %
[2017-10-15 05:05] LABS: Albumin 3.4 g/dL (3.5-5.0); Bilirubin,Total 0.5 mg/dL (0.2-1.2); Calcium 9.1 mg/dL (8.6-10.8); Globulin 3.4 g/dL (2.4-3.5); Potassium 4.3 mEq/L (3.5-4.5); Total Protein 6.8 g/dL (6.0-8.3)
[2017-10-15] MEDS: Aspirin Enteric Coated 81 MG Tablet PO SCH (08:25)
[2017-10-15] MEDS: 0.9 % Sodium Chloride 1,000 ML IVC SCH (08:26)
--- NOTE | 2017-10-15 11:38 | Internal Med Progress Note ---
Date of Encounter: 10/15/17 Time of Encounter: 08:50 - Assessment and plan (1) CVA (cerebral vascular accident) Current Visit: Yes Status: Acute Assessment and plan: Pt was admitted through the ER for concerning symptoms of vision change and left sided weakness, heaviness, numbness. Symptoms have improved, pt is ambulatory but still reports weakness to LLE and it is noticeably weaker than RLE on exam. -MRI showed acute infarct in right adame radiata and posterior limb of the right internal capsule ,as well as volume loss and microvascular white matter ischemic disease. -Carotids were essentially normal. -Echo with LVEF 55-60%, with mild LVDD, no evidence of PFO and no obvious significant valvular dysfunction. -He was evaluated by neurology, recommend antiplatelet therapy aspirin 81 mg by mouth daily, continue statin therapy, consider physical therapy. Neurology has signed off. Continue aspirin, statin Assess for feasibility to availability of physical therapy inpatient rehabilitation versus outpatient therapy. Patient most likely can discharge her after this is sorted out. Brain MRI 10/11/17 12:09 IMPRESSION: *Acute infarct noted in the right adame radiata and posterior limb of the right internal capsule, likely accounting for the patient's left-sided neurologic deficits. 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 D/ / 10/11/2017 14:37:23 Octavio Dowell MD / caridad Interpreting Provider: Octavio Dowell MD Echocardiogram 10/11/17 13:19 Impressions: LVEF 55-60%. Not all LV segments were well visualized, but overall function is normal. Mild concentric left ventricular hypertrophy. Mild left ventricular diastolic dysfunction. Normal right ventricular structure and function. No evidence of PFO with agitated saline contrast. Unable to estimate RVSP due to lack of TR jet. No obvious significant valvular dysfunction. Qualifiers: CVA mechanism: unspecified Qualified Code(s): I63.9 - Cerebral infarction, unspecified (2) Hypertension Current Visit: Yes Status: Acute Assessment and plan: Blood pressure is well controlled. Continue home medications. Continue to monitor labs and vitals. Qualifiers: Hypertension type: essential hypertension Qualified Code(s): I10 - Essential (primary) hypertension (3) Left-sided weakness Current Visit: Yes Status: Acute Assessment and plan: Pt with LLE weakness. Pt states that he notices that he has weakness to LLE when he walks and LLE is noticeably more weak on physical exam. Pt is ambulatory with cane. He states that other than the LLE weakness, he has returned to baseline. Pt states that he has been able to ambulate around the unit several times yesterday. PT/OT recommend that he go to rehab facility, pt is agreeable, however he is [facility] and there is no bed available per . She will discuss options with pt prior to discharge. Continue PT/OT, fall precautions, amb with cane and assistance. (4) DVT prophylaxis Current Visit: Yes Status: Acute Assessment and plan: SÁNCHEZ bentley ordered. PT is also ambulatory with cane in department. - Time Spent With Patient less than 15 minutes - Subjective Interval history: Patient was seen and assessed at 8:50 AM. Is alert, oriented, pleasant. He reports that he would like to have a life alert button at home, however unable to afford it at this time. Patient is agreeable to go to rehabilitation for short amount of time, he does not have any insurance other than [facility] insurance and there is no bed available there and this time. He is also agreeable to have home health or go for outpatient rehab. He states that he notices that his LLE is weaker than normal and he notices when he is walking, but otherwise has returned to normal. He denies dizziness, vision changes, dysarthria, SOB, CP, diaphoresis, n/v/d, or abdominal pain. - Constitutional Vitals: Temp Pulse Resp BP Pulse Ox 98.3 F 76 16 147/87 93 10/15/17 08:15 10/15/17 08:15 10/15/17 08:15 10/15/17 08:15 10/15/17 08:15 General appearance: Present: A&O X 3, pleasant, no acute distress, answers questions appropriately - Head Head exam: Present: atraumatic, normal inspection, normocephalic - Eye Eye exam: Present: normal appearance, conjuntiva pink, sclera anicteric - Neck Neck exam general surgery: Present: supple, trachea midline. Absent: lymphadenopathy, tenderness - Respiratory Respiratory exam: Present: CTAB. Absent: accessory muscle use, decreased breath sounds, rales, rhonchi, wheezes - Cardiovascular Cardiovascular exam: Present: RRR, +S1, +S2. Absent: diastolic murmur, gallop, rubs, systolic murmur - GI/Abdominal GI/Abdominal exam: Present: distended, normal bowel sounds, soft, no peritoneal signs. Absent: hepatomegaly, tenderness - Extremities Exam Extremities exam: Present: normal capillary refill, warm, radial pulses palpable and symmetrical. Absent: calf tenderness, cyanotic, pedal edema, tenderness - Neurological Exam Neurological exam: Present: alert, oriented X3, no focal deficits. Absent: altered, facial droop, speech deficit - Skin Skin exam: Present: dry, intact, normal color, warm. Absent: rash Internal Medicine: Result - Labs CBC & Chem 7: 10/15/17 04:22 10/15/17 04:22 Labs: Short CBC 10/15/17 Range/Units 04:22 WBC 8.4 (4.3-11.1) K/mcL Hgb 13.7 (12.9-16.9) g/dL Hct 40.2 (37.5-50.1) % Plt Count 229 (140-400) K/mcL Neutrophils # 5.4 (1.6-8.9) K/mcL BMP 10/15/17 04:22 Sodium 143 Potassium 4.3 Chloride 107 Carbon Dioxide 27 BUN 31 H Creatinine 1.71 H Glucose 110 H Calcium 9.1 Liver Function 10/15/17 Range/Units 04:22 Total Bilirubin 0.5 (0.2-1.2) mg/dL AST 29 (5-34) Units/L ALT 25 (0-55) Units/L Alkaline Phosphatase 82 (38-126) Units/L Albumin 3.4 L (3.5-5.0) g/dL - ABG Interpretation ABG results: PT/INR, D-dimer PT 11.6 Seconds (9.4-12.1) 10/12/17 04:04 - VTE Documentation of Mechanical Device: Graduated compression elastic hosiery Consult Discharge Plan - Plan [facility]errals: [facility] [Primary Care Provider] -
[2017-10-16] MEDS: 0.9 % Sodium Chloride 1,000 ML IVC SCH (01:35)
[2017-10-16] MEDS: Aspirin Enteric Coated 81 MG Tablet PO SCH (08:08)
[2017-10-16 11:14] VITALS: BP 138/81
--- NOTE | 2017-10-16 12:12 | Discharge Summary ---
Date of Encounter: 10/16/17 Time of Encounter: 10:50 - Discharge Diagnosis (1) CVA (cerebral vascular accident) Priority: Primary Status: Acute Comments: Pt was admitted through the ER for concerning symptoms of vision change and left sided weakness, heaviness, numbness. Symptoms have improved, pt is ambulatory but still reports weakness to LLE and it is noticeably weaker than RLE on exam. He has done well with PT, gait appears to be steady with cane today. -MRI showed acute infarct in right adame radiata and posterior limb of the right internal capsule ,as well as volume loss and microvascular white matter ischemic disease. -Carotids were essentially normal. -Echo with LVEF 55-60%, with mild LVDD, no evidence of PFO and no obvious significant valvular dysfunction. -He was evaluated by neurology, recommend antiplatelet therapy aspirin 81 mg by mouth daily, continue statin therapy, consider physical therapy. Neurology has signed off. Continue aspirin, statin Due to insurance and lack of available bed at [place], pt will go home and will follow up with Geovanny Christie at [place] for therapy services. We will get him an appointment with Geovanny Christie to get the process of PT started. Brain MRI 10/11/17 12:09 IMPRESSION: *Acute infarct noted in the right adame radiata and posterior limb of the right internal capsule, likely accounting for the patient's left-sided neurologic deficits. 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 D/ / 10/11/2017 14:37:23 Octavio Dowell MD / caridad Interpreting Provider: Octavio Dowell MD Echocardiogram 10/11/17 13:19 Impressions: LVEF 55-60%. Not all LV segments were well visualized, but overall function is normal. Mild concentric left ventricular hypertrophy. Mild left ventricular diastolic dysfunction. Normal right ventricular structure and function. No evidence of PFO with agitated saline contrast. Unable to estimate RVSP due to lack of TR jet. No obvious significant valvular dysfunction. Findings: Study Quality * Technically sub-optimal due to poor echocardiographic windows. ECG Findings * Sinus rhythm with BBB. Left Ventricle * LVEF 55-60%. Not all LV segments were well visualized, but overall function is normal. * Normal LV chamber size. * Mild concentric left ventricular hypertrophy. * Mild left ventricular diastolic dysfunction. Right Ventricle * Normal right ventricular structure and function. Left Atrium * Normal left atrial size. Interatrial Septum * No evidence of PFO with agitated saline contrast. Aortic Valve * Aortic valve not well visualized. * Moderately sclerotic noncoronary cusp. * No aortic stenosis. * Trace aortic regurgitation. Mitral Valve * Mitral valve not well visualized. * No mitral regurgitation. * No mitral stenosis. Tricuspid Valve * Tricuspid valve not well visualized. * No tricuspid regurgitation. * Unable to estimate RVSP due to lack of TR jet. Pulmonic Valve * Pulmonic valve not well visualized. Aorta * Normally sized aortic root. Pericardium * The pericardium appears normal. IVC * The IVC is not well evaluated. Pulmonary Artery * Pulmonary artery not well visualized. Right Atrium * Normal right atrial size. Qualifiers: CVA mechanism: unspecified Qualified Code(s): I63.9 - Cerebral infarction, unspecified (2) Hypertension Priority: Primary Status: Acute Comments: Well controlled. Continue home medications. No adjustments needed. Qualifiers: Hypertension type: essential hypertension Qualified Code(s): I10 - Essential (primary) hypertension (3) Left-sided weakness Priority: Secondary Status: Acute Comments: Pt with LLE weakness. Pt states that he notices that he has weakness to LLE when he walks and LLE is noticeably more weak on physical exam. Pt is ambulatory with cane. He states that other than the LLE weakness, he has returned to baseline. Pt states that he has been able to ambulate around the unit several times yesterday. PT/OT recommend that he go to rehab facility, pt is agreeable, however he is [facility] and there is no bed available per and he has no other insurance. Pt will go home today and will have the assistance of his sister. He will follow up with [facility] for referral to PT. We will get him an appointment. (4) DVT prophylaxis Priority: Secondary Status: Acute Comments: SÁNCHEZ bentley ordered. PT is also ambulatory with cane in department. - Discharge Medications Prescriptions: Aspirin Enteric Coated [Aspirin EC] 81 mg PO DAILY #30 tablet. Atorvastatin [Lipitor] 40 mg PO HS #30 tablet Home Medications: Calcium Carbonate/Vitamin D3 [Calcium 500 + Vit D Caplet] 1 tab PO DAILY [History] Carboxymethylcellulose Sodium [Refresh Liquigel] 1 drop OP TID 10/11/17 [History ] Cetirizine HCl [All Day Allergy] 10 mg PO DAILY 10/11/17 [History] Cholecalciferol (D-3) [Vitamin D] 1,000 unit PO DAILY 10/11/17 [History] FluocinoNIDE 0.05% CRM [Lidex] 1 appl TP BID 10/11/17 [History] Hydrocortisone 2.5% CREAM [Cortaid] 1 appl TP BID 10/11/17 [History] Omeprazole [PriLOSEC] 20 mg PO DAILY 10/11/17 [History] Simethicone [Gas-X] 80 mg PO QID PRN 10/11/17 [History] hydrOXYzine pamoate [HydrOXYzine Pamoate] 25 mg PO BID PRN 10/11/17 [History] Aspirin Enteric Coated [Aspirin EC] 81 mg PO DAILY #30 tablet. 10/16/17 [Rx] Atorvastatin [Lipitor] 40 mg PO HS #30 tablet 10/16/17 [Rx] Allergies/Adverse Reactions: 3 Allergy/AdvReac Type Severity Reaction Status Date / Time Penicillins [PCN] Allergy Hives Verified 10/11/17 11:55 Date of admission: 10/11/17 13:14 [facility] care physician: [facility] Consults: 10/11/17 13:18 Consult to Occupational Therapy [CONS] Routine Comment: Evaluate, develop and implement POC Reason for Consult: TIA to rule out CVA Consult to Physical Therapy [CONS] Routine Comment: Evaluate, develop and implement POC Reason for Consult: TIA to rule out CVA Consult to Speech Therapy [CONS] Routine Comment: Evaluate, develop and implement POC Reason for Consult: TIA to rule out CVA Call Completed: No 10/11/17 15:19 Consult to Manufacturing Advisor [CONS] Routine Reason for SW Consult: Possible home health 10/12/17 14:16 Consult to Neurology [CONS] Routine Consulting Provider: Neurology [facility] Reason for Consult: Right MCA infarct Call Completed: Yes Discharging clinician: Afia Melton Anticipated date of discharge: 10/16/17 - Patient Status Disposition: Home, Self-Care Condition: Good Functional capacity at discharge: uses cane/walker Overall status at discharge: patient is progressing back to baseline - Discharge Instructions [facility] Up With: [facility] [Primary Care Provider] - Additional Instructions: Please make sure that you follow up with the [facility] as scheduled. Please make sure that they arrange for your physical therapy Please take your medications as directed. Please make sure that you are using your cane when you walk, get up from a seated position slowly. Return to the ER as needed for any other problems or concerns or if your symptoms return or worsen. - Diet and Activity Activity: as per physical therapy Diet: advance to your usual diet Interval History: Please see assessment and plan for hospital course. Hospital course: Mr. Farah is a 77 year old male - Time Spent with Patient Total time spent providing and/or coordinating discharge services: Less than 30 minutes - Constitutional Vitals: Temp Pulse Resp BP Pulse Ox 97.5 F L 86 18 138/81 94 10/16/17 11:12 10/16/17 11:12 10/16/17 11:12 10/16/17 11:12 10/16/17 11:12 General appearance: Present: cooperative, A&O X 3, pleasant, no acute distress, answers questions appropriately - Head Head exam: Present: atraumatic, normal inspection, normocephalic - Eye Eye exam: Present: normal appearance, conjuntiva pink, sclera anicteric - Neck Neck exam general surgery: Present: supple, trachea midline. Absent: lymphadenopathy - Respiratory Respiratory exam: Present: CTAB. Absent: accessory muscle use, chest wall tenderness, rales, respiratory distress, rhonchi, wheezes - Cardiovascular Cardiovascular exam: Present: RRR, +S1, +S2. Absent: diastolic murmur, gallop, rubs, systolic murmur - GI/Abdominal GI/Abdominal exam: Present: normal bowel sounds, soft, no peritoneal signs. Absent: distended, hepatomegaly, tenderness - Extremities Exam Extremities exam: Present: normal inspection, warm, radial pulses palpable and symmetrical. Absent: calf tenderness, cyanotic, pedal edema, tenderness - Neurological Exam Neurological exam: Present: alert, oriented X3, no focal deficits. Absent: facial droop, speech deficit - Skin Skin exam: Present: dry, intact, normal color, warm. Absent: rash - VTE Documentation of Mechanical Device: Graduated compression elastic hosiery
== END 2017-10-16 14:33 | disposition home or self-care (01) | DRG 66 ==
LOC: 3BNU 11:53 → EMEROO 11:53 → 3BNU 14:00
PROVIDERS: ADMIT Internal Medicine; ATTEND Registered Nurse